=== PATIENT | female | born 1945 | race Caucasian/White ===

== ENCOUNTER → 2023-09-13 15:40 | Outpatient (REF) | payer MEDICARE, OTHER, SELFPAY | LOC: HWRAD 15:40 | PROVIDERS: ATTENDING PHYSICIAN Specialist; FAMILY PHYSICIAN Internal Medicine | DX: M25.511 Pain in right shoulder (principal) | CPT/HCPCS: 73200 ==

== ENCOUNTER → 2024-12-31 08:43 | Outpatient (REF) | payer MEDICARE, OTHER, SELFPAY | LOC: HWRAD 08:43 | PROVIDERS: ATTENDING PHYSICIAN Physician Assistant Surgical; FAMILY PHYSICIAN Internal Medicine | DX: M25.511 Pain in right shoulder (principal) | CPT/HCPCS: 73200 ==

== ENCOUNTER 2025-04-14 18:05 | Emergency (ER) | payer MEDICARE, OTHER, SELFPAY ==
[2025-04-14 18:09] VITALS: BP 147/97
--- NOTE | 2025-04-14 19:23 | ED.GENMED ---
History of Present Illness
General
Chief Complaint: Head Injury
Source: patient
Exam Limitations: none
Time Seen by Provider: 04/14/25 19:15
History of Present Illness
History of Present Illness:
Patient tripped over her dog and fell. Hit her head. Some moderate right forehead pain. Improving however. No syncope. No LOC. No nausea or vomiting. Small abrasion of the left arm. Mild tenderness to the right knee but able to bear weight
without issues. Mild chronic neck discomfort that is mildly worse than baseline. No thinners
Past History
Past History
ED Past Medical History: GERD, HTN and Hypercholesterolemia
ED Past Surgical History: Other (Hernia repair)
Social History
Tobacco: Non-smoker
Alcohol: None
Drug: None
Personal:
Living: with family
Employment: Employed
Review of Systems
Review of Systems
All Other Systems: Not applicable
Respiratory: Reports no symptoms
Cardiac: Reports no symptoms
Phy Exam
Physical Exam
Physical Exam:
TRAUMA EXAM:
VITAL SIGNS: Vital signs reviewed, cooperative
DISTRESS: No active disease
EYES: Pupils reactive, no orbital trauma
NOSE: No deformity or epistaxis
FACE AND SCALP: Moderate hematoma to the right forehead. No open wound. TMs clear
NECK: Supple minimal paracervical tenderness
RESPIRATORY: No distress, no tender chest wall
SKIN: Abrasion to the left forearm
EXTREMITIES: Very minimal tenderness over the right patella. Old surgical scar. Knee is stable. All other extremities unremarkable from a bony or joint standpoint. Able to bear full weight and ambulate
NEUROLOGICAL: Alert, oriented, no motor deficits
PSYCH: Mood affect normal
Course
Orders/Labs/Results
Orders:
Orders
04/14/25 18:20
CT Head W/o Iv Contrast Urgent
Comment:
Reason For Exam: fall hit forehead
04/14/25 19:22
CT Cervical Spine W/o Iv Contr Urgent
Comment:
Reason For Exam: Fall/head injury/neck pain
Nursing to Place Non Medication Order As Directed
Physician Order: Please clean and dress left arm abrasion. Thank you
Above order entered?: Yes
Vital Signs
Initial and Last Documented VS:
Initial Vital Signs
Temp Pulse Resp BP Pulse Ox
97.5 F 97 18 147/97 97
04/14/25 18:09 04/14/25 18:09 04/14/25 18:09 04/14/25 18:09 04/14/25 18:09
Last Documented Vital Signs
Temp Pulse Resp BP Pulse Ox
98.7 F 77 18 133/88 98
04/14/25 20:58 04/14/25 20:58 04/14/25 20:58 04/14/25 20:58 04/14/25 20:58
MDM/Problems Addressed
Differential Diagnosis Includes:
Low suspicion for serious head injury. CT was reviewed by myself and appears negative. Await for official report. Patient has no other significant trauma however has some increase over her baseline neck discomfort. We will send her back for
cervical CT. No significant bony abnormalities clinically. No other radiologic testing warranted. Tetanus is less than 10.
*Pulse Oximetry
SaO2: 97
Oxygen Mode of Delivery: Room air
Patient hypoxic: no
*Critical Care Note
Total Time (30-74mins, 75-104mins- exclusive of procedures): Not Applicable
Update Note
Update Note:
CT cervical spine stable. Discharged to follow-up
Patient given copy of CT report. Aware of disc herniation
ED Attending Note
-
Portions of this chart may have been created with voice recognition software.� Occasional wrong word or��sound alike� substitutions may have occurred due to the inherent limitations of voice recognition software.
Discharge Plan
Departure
Patient Disposition: Home (Routine Discharge)
Date of Disposition: 04/14/25
Time of Disposition: 20:50
Patient with high blood pressure during this ER visit?: Yes
Discharge Problem:
Fall/head injury, Cervical sprain, Left arm abrasion
Instructions: Head Injury in Adults (DC), Contusion (DC), Abrasions - ED (DC), BLOOD PRESSURE
Prescriptions:
No Action
metronidazole 500 MG tablet
500 mg PO TID Qty: 30 0RF
levofloxacin 500 MG tablet
500 mg PO DAILY 10 Days 0RF
hydromorphone 2 MG tablet
2 mg PO Q4HPRN PRN (Reason: pain) Qty: 20 0RF
polyethylene glycol 3350 255 GM powder
17 gm PO DAILY PRN (Reason: constipation) Qty: 1 0RF
cyclobenzaprine 5 mg tablet
5 mg PO BID Qty: 10 0RF
Referrals:
Candice Benson MD [Family Provider] - Follow up in 2-3 days
Interventions
Interventions:
*Risk Screen - Suicide Last Done: 04/14/25 20:59
*General Assessment Last Done: 04/14/25 20:19
*Neglect/Abuse Screening Last Done: 04/14/25 19:36
*ED- Fall Risk Assessment Last Done: 04/14/25 19:36
*ED COVID-19 Vaccine History Last Done: 04/14/25 19:36
*Nursing Disposition Last Done: 04/14/25 20:59
ED- Neurological Assessment Last Done: 04/14/25 19:38
ED-Skin Assessment Last Done: 04/14/25 19:38
Discharge Date and Time
Discharge Date/Time: 04/14/25 21:00
Print Language: BELARUSIAN
[2025-04-14 20:58] VITALS: BP 133/88
== END 2025-04-14 21:00 | disposition home or self-care (01) ==
LOC: EMR 18:05
PROVIDERS: EMERGENCY PHYSICIAN Emergency Medicine; FAMILY PHYSICIAN Internal Medicine
DX: S09.90XA Unspecified injury of head, initial encounter (principal); S13.4XXA Sprain of ligaments of cervical spine, initial encounter; S40.812A Abrasion of left upper arm, initial encounter; W01.0XXA Fall on same level from slipping, tripping and stumbling without subsequent striking against object, initial encounter; E78.00 Pure hypercholesterolemia, unspecified; I10 Essential (primary) hypertension
CPT/HCPCS: 99284; 70450; 72125

== ENCOUNTER → 2025-06-17 08:10 | Outpatient (REF) | payer MEDICARE, OTHER, SELFPAY | LOC: HWRAD 08:10 | PROVIDERS: ATTENDING PHYSICIAN Physician Assistant Surgical; FAMILY PHYSICIAN Internal Medicine | DX: Z96.611 Presence of right artificial shoulder joint (principal) | CPT/HCPCS: 73200 ==